=== PATIENT | male | born 1970 | race Caucasian/White ===

== ENCOUNTER 2024-04-06 15:43 | Emergency (ER) | payer BC ==
[2024-04-06 15:50] VITALS: TEMP 98.1
[2024-04-06] MEDS: HYDROmorphone 1 MG/ML 1 ML SYRINGE IVP STA ×3 (16:21→19:36)
[2024-04-06] MEDS: KETOROLAC 15 MG/ML 1 ML VIAL IVP STA ×2 (16:24→19:48)
[2024-04-06] MEDS: DEXAMETHASONE SOD PHOSPHATE 10 MG/ML 1 ML VIAL IVP STA (16:26)
[2024-04-06] MEDS: ONDANSETRON 4 MG/2 ML VIAL IVP STA (16:27)
[2024-04-06] MEDS: ORPHENADRINE 30 MG/ML 2 ML VIAL IVP STA (16:29)
--- NOTE | 2024-04-06 16:29 | ED ---
Back Pain HPI - General Chief Complaint: Back Pain/Injury Stated Complaint: back pain Time Seen by Provider: 04/06/24 16:00 Source: patient, EMS, RN notes reviewed Mode of arrival: EMS Limitations: no limitations - History of Present Illness Initial Comments: This is a 53-year-old male who presents to the emergency department for low back pain. Patient states that he went to bend down to rock [employer] laundry today and developed sudden severe pain in his left lower back that has started to shoot down his leg. He has had back problems before but states that he has never experienced pain like this. He was given fentanyl and Toradol by EMS en route without any relief in symptoms. Denies any loss of bowel/bladder control or saddle anesthesia. He does take Percocet 10mg for chronic pain. - Related Data Previous Rx's Medication Instructions Recorded Cyclobenzaprine [Flexeril] 10 mg PO TID PRN #30 tab 04/06/24 Meloxicam [Mobic] 15 mg PO DAILY PRN #20 tab 04/06/24 predniSONE 50 mg PO DAILY 5 Days #5 tab 04/06/24 Allergies Allergy/AdvReac Type Severity Reaction Status Date / Time No Known Allergies Allergy Verified 04/06/24 15:50 Review of Systems ROS Statement: Those systems with pertinent positive or pertinent negative responses have been documented in the HPI. ROS Other: All systems not noted in ROS Statement are negative. Past Medical History Past Medical History: Osteoarthritis (OA) History of Any Multi-Drug Resistant Organisms: None Reported Past Surgical History: Orthopedic Surgery Additional Past Surgical History / Comment(s): cervical fusion, left shoulder Past Psychological History: No Psychological Hx Reported Smoking Status: Current some day smoker Past Alcohol Use History: Occasional Past Drug Use History: None Reported General Exam Limitations: no limitations General appearance: alert, in distress Head exam: Present: atraumatic, normocephalic, normal inspection Respiratory exam: Present: normal lung sounds bilaterally. Absent: respiratory distress, wheezes, rales, rhonchi, stridor Cardiovascular Exam: Present: regular rate, normal rhythm, normal heart sounds. Absent: systolic murmur, diastolic murmur, rubs, gallop, clicks Back exam: Present: tenderness (Left lower back) Neurological exam: Present: alert, oriented X3, CN II-XII intact Psychiatric exam: Present: normal affect, normal mood Skin exam: Present: warm, dry, intact, normal color. Absent: rash Course Vital Signs 04/06/24 04/06/24 04/06/24 15:44 17:28 18:21 Temperature 98.1 F Pulse Rate 90 79 80 Respiratory 18 20 18 Rate Blood Pressure 160/90 145/74 143/92 O2 Sat by Pulse 98 100 96 Oximetry 04/06/24 19:34 Temperature Pulse Rate 83 Respiratory 18 Rate Blood Pressure 139/75 O2 Sat by Pulse 98 Oximetry Medical Decision Making - Medical Decision Making This is a 53 year old male who presents to the emergency department for back pain. Was pt. sent in by a medical professional or institution? @ -No Did you speak to anyone other than the patient for history? @ -No Did you review nursing and triage notes? @ -Yes, and I agree, it is accurate with regards to the patient's symptoms. Were old charts reviewed? @ -No Differential Diagnosis? @ -Differential Back Pain: Strain, zoster, cauda equina syndrome, epidural abscess, vertebral osteomyelitis , discitis, fracture, subluxation, disc herniation, DJD, spinal stenosis, dissection, AAA, pancreatitis, peptic ulcer disease, pyelonephritis, kidney stone, this is not meant to be an all-inclusive list. EKG interpreted by me (3pts min.)? @ -Not obtained X-rays interpreted by me (1pt min.)? @ -Not obtained CT interpreted by me (1pt min.)? @ -CT scan of the lumbar spine obtained. My interpretation identifies no acute fractures. U/S interpreted by me (1pt. min.)? @ -Not obtained What testing was considered but not performed? (CT, X-rays, U/S, labs)? Why? @ -None What meds were considered but not given? Why? @ -None Did you discuss the management of the patient with other professionals? @ -No Did you reconcile home meds? @ -No Was smoking cessation discussed for >3mins.? @ -No Was critical care preformed (if so, how long)? @ -No Were there social determinants of health that impacted care today? How? (Homelessness, low income, unemployed, alcoholism, drug addiction, transportation, low edu. Level, literacy, decrease access to med. care, long term, rehab)? @ -No Was there de-escalation of care discussed even if they declined? (Discuss DNR or withdrawal of care, Hospice)? @ -No What co-morbidities impacted this encounter? (DM, HTN, Smoking, COPD, CAD, Cancer, CVA, Hep., AIDS, mental health diagnosis, sleep apnea, morbid obesity)? @ -None Was patient admitted / discharged? @ -Discharged. CT scan of the lumbar spine was obtained demonstrating multilevel degenerative disc disease as well as central stenosis and several disc herniations. Findings reviewed with the patient. His pain was fairly difficult to control, as the patient is opioid tolerant and on Percocet 10 mg several times daily. Discussed that he will need to follow-up with orthopedics for further management. He currently lives locally but is in the process of moving and and a disc copy of the CT scan was made and provided to the patient. Information for local orthopedic follow up provided as well. Prescription for prednisone, Mobic, and Flexeril provided for pain management. Patient discharged home in stable condition. Undiagnosed new problem with uncertain prognosis? @ -None Drug Therapy requiring intensive monitoring for toxicity (Heparin, Nitro, Insulin, Cardizem)? @ -None Were any procedures done? @ -None Diagnosis/symptom? @ -Lumbar disc herniations Acute, or Chronic, or Acute on Chronic? @ -Acute Uncomplicated (without systemic symptoms) or Complicated (systemic symptoms)? @ -Uncomplicated Side effects of treatment? @ -None Exacerbation, Progression, or Severe Exacerbation] @ -Not applicable Poses a threat to life or bodily function? @ -The pain may limit his ability to function. Return precautions reviewed in depth, the patient is instructed to return to the emergency department with any new, worsening, or concerning symptoms. Patient verbalized understanding. This case was discussed in detail with the attending ED physician, Dr. Martinez. Presentation, findings, and treatment plan discussed in detail as well. - Radiology Data Radiology results: report reviewed, image reviewed Disposition Clinical Impression: Lumbar herniated disc, Central stenosis of spinal canal Disposition: HOME SELF-CARE Instructions (If sedation given, give patient instructions): Lumbar Disc Herniation (ED), Acute Low Back Pain (ED) Additional Instructions: Return to the emergency department with any new, worsening, or concerning symptoms. Take the prednisone daily for 5 days. Take the meloxicam daily as an anti-inflammatory. Take this with Tylenol for additional effect. Take the Flexeril up to 3 times daily, however be aware that this may make you drowsy. You can also try [id number] lidocaine patches or capsaicin cream. You will need to follow-up with an orthopedic provider or retail specialist regarding the herniated disks. I will give you local providers below, or you can also follow-up with someone when you move to [place]. Try to avoid any excessive bending or lifting. Prescriptions: Cyclobenzaprine [Flexeril] 10 mg PO TID PRN #30 tab PRN Reason: Pain Meloxicam [Mobic] 15 mg PO DAILY PRN #20 tab PRN Reason: Pain predniSONE 50 mg PO DAILY 5 Days #5 tab Is patient prescribed a controlled substance at d/c from ED?: No Referrals: None,Stated [Primary Care Provider] - 1-2 days Baron Jean, [Doctor of Osteopathic Medicine] - 1-2 days Damaris Castillo, [Doctor of Osteopathic Medicine] - 1-2 days
--- NOTE | 2024-04-06 16:56 | CT ---
EXAMINATION TYPE: CT lumbar spine wo con DATE OF EXAM: 04/06/2024 4:52 PM COMPARISON: None HISTORY: low left side back pain. CT DLP: 784.4 mGycm Automated exposure control for dose reduction was used. Unenhanced CT of the lumbar spine was performed. Bone and soft tissue window settings are submitted as well as coronal and sagittal reconstructions. L1-L2: Normal disc space height. No disc herniation protrusion or central stenosis. No facet joint arthropathy. No evidence for foraminal encroachment. L2-L3: Normal disc space height. No disc herniation protrusion or central stenosis. No facet joint arthropathy. No evidence for foraminal encroachment. L3-L4: Mild degenerative disc space narrowing with moderate posterior disc bulge. Far laterally to th e right disc herniation is difficult to exclude. There is effacement of the ventral thecal sac with r esultant mild central stenosis. Severe right-sided foraminal encroachment with mild left-sided forami nal encroachment. L4-L5: Mild degenerative disc space narrowing with a moderate circumferential disc bulge greatest pos teriorly. There is effacement of the thecal sac with a mild central stenosis. Moderate bilateral fora hank encroachment. L5-S1: Gixu-lm-mrrxchod degenerative disc space narrowing with posterior central broad-based disc her niation. Effacement of the ventral thecal sac with bilateral lateral recess stenosis and mild right l ateral foraminal encroachment. No evidence for central stenosis at this time. IMPRESSION: 1 multilevel degenerative disc disease. 2. Central stenosis and disc herniations as outlined above.
[2024-04-06] MEDS: LIDOCAINE 4% PATCH TOPICAL ONE (17:38)
[2024-04-06 18:22] VITALS: RESP 18
[2024-04-06 19:36] VITALS: BP 139/75; PULSE 83
== END 2024-04-06 19:57 | disposition home or self-care (01) ==
LOC: EC 15:43
DX: M48.061 Spinal stenosis, lumbar region without neurogenic claudication (principal); F17.200 Nicotine dependence, unspecified, uncomplicated
CPT/HCPCS: 72131; 99284; 96374; 96375 ×5; 96376 ×2; J1100; J2360; J3360; J2405; J1170; J1885